=== PATIENT | female | born 1940 | race Caucasian/White ===

== ENCOUNTER 2016-11-15 09:33 | Outpatient (CLI) | payer OTHER, MEDICARE ==
[~2016-11-15] VITALS: Ht 154.9 cm; Wt 56.7 kg
[~2016-11-15 09:33] MED LIST: ASP325T; DGX.05B60; GLMP2T; GMFB600T; MTF500T
--- OUTSIDE RECORDS SUMMARY | 2016-11-15 09:36 | XMS REPORT | Continuity of Care Document ---
Author Author [facility] Organization [facility] Address Unknown Phone Unavailable Allergies Active Description Code Type Severity Reaction Onset Reported/Identified Relationship to Patient Clinical Status Yes cilostazol [id number] Drug Allergy Mild N/A 02/26/2008 Yes ciprofloxacin [id number] Drug Allergy Mild N/A 02/26/2008 Yes codeine [id number] Drug Allergy Mild N/A 02/26/2008 Yes gabapentin [id number] Drug Allergy Mild N/A 02/26/2008 Yes penicillin V [id number] Drug Allergy Mild N/A 02/26/2008 Yes pioglitazone [id number] Drug Allergy Mild N/A 02/26/2008 Yes tramadol [id number] Drug Allergy Mild N/A 02/26/2008 Yes cilostazol Drug Allergy Severe IRREGULAR HEART BEAT 05/16/2012 Yes Penicillins Drug Allergy Severe RASH AND ITCHING AND SWOLLEN THROAT 05/16/2012 Yes pioglitazone HCl Drug Allergy Severe ESOPHAGEAL SPASMS 05/16/2012 Yes tramadol HCl Drug Allergy Severe HEART ATTACK 05/16/2012 Yes ciprofloxacin HCl Drug Allergy Moderate HEADACHE 05/16/2012 Yes esomeprazole mag Drug Allergy Moderate SEVERE DIARRHEA 05/16/2012 Yes codeine Drug Allergy Mild HEADACHE 05/16/2012 Yes gabapentin Drug Allergy Mild HEADACHE, DIARRHEA 05/16/2012 Yes cilostazol cilostazol Drug Allergy Severe IRREGULAR HEART BEAT 05/16/2012 Yes Penicillins Penicillins Drug Allergy Severe RASH AND ITCHING AND SWOLLEN THROAT 05/16/2012 Yes pioglitazone HCl pioglitazone HCl Drug Allergy Severe ESOPHAGEAL SPASMS 05/16/2012 Yes tramadol HCl tramadol HCl Drug Allergy Severe HEART ATTACK 05/16/2012 Yes ciprofloxacin HCl ciprofloxacin HCl Drug Allergy Moderate HEADACHE 05/16/2012 Yes esomeprazole mag esomeprazole mag Drug Allergy Moderate SEVERE DIARRHEA 05/16/2012 Yes codeine codeine Drug Allergy Mild HEADACHE 05/16/2012 Yes gabapentin gabapentin Drug Allergy Mild HEADACHE, DIARRHEA 05/16/2012 Yes Tetanus Vaccines Toxoid Drug Allergy Severe swelling 09/01/2012 Yes Tetanus Vaccines Toxoid Tetanus Vaccines Toxoid Drug Allergy Severe swelling 09/01/2012 Medications Problems Date Dx Coded Attending Type Code Diagnosis Diagnosed By 12/13/2013 Joshua Busch MD 250.00 DIAB KIRBY WO COMPL, TYPE II OR UNSPEC TYPE , NOT UN 12/13/2013 Joshua Busch MD 272.4 HYPERLIPIDEMIA NEC/NOS 12/13/2013 Joshua Busch MD 278.00 OBESITY, NOS 12/13/2013 Joshua Busch MD 401.9 HYPERTENSION NOS 12/13/2013 Joshua Busch MD 414.01 CORONARY ATHEROSCLEROSIS OF [place] CORONARY VESSEL 12/13/2013 Joshua Busch MD 427.31 ATRIAL FIBRILLATION 12/13/2013 Joshua Busch MD 511.9 PLEURAL EFFUSION NOS 12/13/2013 Joshua Busch MD 518.0 PULMONARY COLLAPSE 12/13/2013 Joshua Busch MD 530.81 ESOPHAGEAL REFLUX 12/13/2013 Joshua Busch MD 997.1 SURG COMPL-HEART 12/13/2013 Joshua Busch MD 997.39 OTHER RESPIRATORY COMPLICATIONS 12/13/2013 Joshua Busch MD E878.2 ABN REACT-ANASTOM/GRAFT 12/13/2013 Joshua Busch MD V17.3 FAM HX-ISCHEM HEART DIS 12/13/2013 Joshua Busch MD V85.1 BODY MASS INDEX BETWEEN 19-24, ADULT 02/20/2014 FATUMA NIELSEN V45.81 AORTOCORONARY BYPASS 03/31/2015 RODOLFO VARGAS PA-C Ot 780.79 Procedures Code Description Performed By Performed On 36.13 ([place])CORONARY BYPASS OF THREE CORONARY ARTERIES Joshua Busch MD 12/13/2013 36.14 ([place])CORONARY BYPASS OF FOUR OR MORE CORONARY AR Joshua Busch MD 12/13/2013 36.15 1 INT LEODAN-COR ART BYPASS Joshua Busch MD 12/13/2013 39.61 EXTRACORP CIRCULAT AUXIL TO OPEN HEART SURG Joshua Busch MD 12/13/2013 Results Test Result Range URINALYSIS, ROUTINE - 12/13/13 13:30 UA LEUKOCYTE ESTERASE DIPSTICK NEGATIVE NEGATIVE UA NITRITE DIPSTICK NEGATIVE NEGATIVE UA PROTEIN DIPSTICK NEGATIVE NEGATIVE UA GLUCOSE DIPSTICK 4+ NEGATIVE UA KETONE DIPSTICK NEGATIVE NEGATIVE UA UROBILINOGEN DIPSTICK NORMAL NORMAL UA BILIRUBIN DIPSTICK NEGATIVE NEGATIVE UA BLOOD DIPSTICK NEGATIVE NEGATIVE UA VOLUME FOR EXAM 12.0 mL (12mL STD) UA SPECIFIC GRAVITY 1.017 1.015-1.025 UR PH 5.0 5.0-7.0 MRSA SURVEILLANCE SCREEN - 12/13/13 16:25 Uncategorized CBC - 03/21/16 11:32 MEAN CELL HGB 31.6 pg 27.0-33.0 MEAN CELL HGB CONCENTRATION 32.5 g/dL 32.0-37.0 MEAN CELL VOLUME 97.1 fl 80.0-100.0 RED BLOOD CELL 3.74 m/cumm 4.00-6.00 RED CELL DISTRIBUTION WIDTH 13.8 % 11.0- 15.6 WHITE BLOOD CELL 5.4 k/cumm 5.0-10.0 HEMOGLOBIN 11.8 gm/dL 12.0-16.0 HEMATOCRIT 36.3 % 37.0-47.0 PLATELET COUNT 184 k/cumm 150-450 METABOLIC PANEL, BASIC - 03/21/16 11:32 POTASSIUM 4.1 mmol/L 3.5-5.3 EST GFR (MDRD) > 60 mL/min > 59 ANION GAP 8 mmol/L 5-15 EST CrCl (CG) 42 mL/min > 59 GLUCOSE 119 mg/dL 70-99 CALCIUM 8.5 mg/dL 8.5-10.1 BLOOD UREA NITROGEN 12 mg/dL 7-20 CREATININE 0.9 mg/dL 0.6-1.0 SODIUM 140 mmol/L 135-148 CHLORIDE 106 mmol/L 98-110 CARBON DIOXIDE 26 mmol/L 21-32 PROTHROMBIN TIME WITH INR - 03/21/16 11:32 INTERNATIONAL NORMAL RATIO 0.9 0.9-1.1 PROTHROMBIN TIME 11.1 sec 9.3-12.2 Encounters ACCT No. Visit Date/Time Discharge Status Pt. Type Provider Facility Loc./Unit Complaint [id number] 12/13/2013 12:34:00 2013 18:53:00 DIS Inpatient Narayan DUFF, [facility] W.3TN
[2016-11-15] MEDS ORDERED: TRIAMCINOLONE ACET (KENALOG-40) 40 MG/ML 1 ML VIAL ONE (09:40)
[2016-11-15] MEDS ORDERED: BUPIVACAINE 0.25% 30 ML (SENSORCAINE) VIAL ONE (09:40)
[2016-11-15 09:49] VITALS: BP 182/84
[2016-11-15 10:18] VITALS: BP 177/81
--- NOTE | 2016-11-15 11:26 | Pain Medicine-Procedure ---
Procedure Pre-Op/Post-Op Diagnosis Diagnosis: disc disorder with radiculopathy, lumbar Indications for Operation low back pain Attending Surgeon Iesha Procedure Date of Service: Nov 15, 2016 Procedure: Lumbar Epidural Steroid Injection at the L4-L5 level under Fluoroscopic Guidance Procedure: Patient was identified in the holding area. After risks, benefits, and alternatives were discussed with the patient, informed consent was obtained.patient held her Plavix for 7 days prior to procedure. Patient was brought to the fluoroscopy suite and placed prone on the procedure room table. A time out was performed. Vital signs were monitored throughout the procedure. The patients low back was prepped and draped in the usual sterile fashion. The patients skin was anesthetized using 2% Lidocaine. A Tuohy needle was inserted and advanced to the L4-L5 epidural space under fluoroscopic guidance using the loss of resistance technique and intermittent projection of fluoroscopy. There was no paresthesia with needle placement. The needle position was confirmed in both the AP and lateral view. After negative aspiration 2ml of contrast was injected under live fluoroscopy which showed good spread of the contrast in the epidural space at the appropriate level, there was no intravascular or subarachnoid spread. Again, after negative aspiration for heme or CSF, 2 ml of 0.25% Bupivicaine, 2ml of preservative free normal saline, and 80mg of Kenalog was injected. The needle was removed and a sterile bandage was placed and the patient was transferred to the recovery area in stable condition. After a brief period of observation, patient was discharged to home with no new neurological deficits and no apparent complications. Complications none [place] MD Nov 15, 2016 11:26 am
== END 2016-11-15 10:20 | disposition home or self-care (01) ==
LOC: CARD 09:33
PROVIDERS: ATTEND Pain Medicine Pain Medicine
DX: M51.16 Intervertebral disc disorders with radiculopathy, lumbar region (principal)
CPT/HCPCS: 62323